=== PATIENT | female | born 2000 | race Caucasian/White ===

== ENCOUNTER 2019-03-10 20:17 | Emergency (ER) | payer OTHER ==
[~2019-03-10] VITALS: Ht 160 cm; Wt 72.7 kg
[2019-03-10 21:08] LABS: BASO # 0.1 10^3/uL (0.0-0.2); BASO % 0.5 % (0.0-1.0); EOS # 0.2 10^3/uL (0.0-0.5); EOS % 2.2 % (0.0-3.0); HEMATOCRIT 41.4 % (36.0-47.0); HEMOGLOBIN 13.6 g/dl (12.0-15.5); LYMPH # 2.7 10^3/uL (1.5-5.0); LYMPH % 27.4 % (24.0-44.0); MEAN CORPUSCULAR HEMOGLOBIN 30.3 pg (27.0-33.0); MEAN CORPUSCULAR HGB CONC 32.9 g/dl (32.0-36.5); MEAN CORPUSCULAR VOLUME 92.2 fl (80.0-96.0); MONO # 0.9 10^3/uL (0.0-0.8); MONO % 8.7 % (0.0-5.0); NEUTROPHILS # 6.1 10^3/uL (1.5-8.5); NEUTROPHILS % 60.6 % (36.0-66.0); PLATELET COUNT, AUTOMATED 249 10^3/uL (150-450); RED BLOOD COUNT 4.49 10^6/uL (4.00-5.40)
[2019-03-10 21:21] LABS: HCG, SERUM QUALITATIVE NEGATIVE (NEGATIVE)
[2019-03-10 21:26] LABS: ALBUMIN 3.6 GM/DL (3.2-5.2); ALT/SGPT 36 U/L (12-78); BILIRUBIN,DIRECT 0.1 MG/DL (0.0-0.2); BILIRUBIN,TOTAL 0.4 MG/DL (0.2-1.0); BLOOD UREA NITROGEN 12 MG/DL (7-18); CALCIUM LEVEL 9.3 MG/DL (8.5-10.1); CARBON DIOXIDE LEVEL 29 MEQ/L (21-32); CHLORIDE LEVEL 110 MEQ/L (98-107); CREATININE FOR GFR 0.92 MG/DL (0.55-1.30); GLOMERULAR FILTRATION RATE > 60.0 (>60); GLUCOSE, FASTING 81 MG/DL (70-100); LIPASE 265 U/L (73-393); POTASSIUM SERUM 4.8 MEQ/L (3.5-5.1); SODIUM LEVEL 142 MEQ/L (136-145); TOTAL PROTEIN 6.9 GM/DL (6.4-8.2)
[2019-03-11 01:03] LABS: CHLAMYDIA DNA AMPLIFICATION NEGATIVE (NEGATIVE); GC DNA AMPLIFICATION NEGATIVE (NEGATIVE)
--- NOTE | 2019-03-11 01:13 | REPVR ---
EXAM: US Pelvis Complete, Transabdominal and US Pelvis, Transvaginal EXAM DATE/TIME: 03/10/2019 12:30 AM CLINICAL HISTORY: 19 years old, female; Pelvic pain; Additional info: Ovarian pain, uterine pain TECHNIQUE: Imaging protocol: Real-time transabdominal and transvaginal pelvic ultrasound (complete) with image documentation. Transvaginal imaging was used for better evaluation of the endometrium and adnexa. COMPARISON: No relevant prior studies available. FINDINGS: Uterus/cervix: 8.5 x 5.5 x 4.4 cm. Normal endometrial thickness, measuring approximately 12 mm. Right ovary: 3.4 x 2.7 x 2.8 cm. No mass. Normal ovarian blood flow. Left ovary: 4.8 x 4 x 4.4 cm. 3.6 x 3.4 x 3.8 cm mildly complex cystic lesion, likely a hemorrhagic cyst or endometrioma. No mass. Normal ovarian blood flow. Free fluid: Trace nonspecific free pelvic fluid, likely physiologic. Bladder: Normal. IMPRESSION: 3.6 x 3.4 x 3.8 cm mildly complex left ovarian cystic lesion, likely a hemorrhagic cyst or endometrioma. If clinically indicated, followup pelvic ultrasound may be obtained in 6-8 weeks to ensure resolution. Electronically signed by: Woodrow Long On 03/11/2019 01:13:18 AM
[2019-03-11] MEDS ORDERED: DOXYCYCLINE HYCLATE 100 MG TAB PO ONE (01:45)
[2019-03-11] MEDS ORDERED: DOXY100C37 PO (01:57)
[2019-03-11 02:12] VITALS: BP 109/69
--- NOTE | 2019-03-11 15:05 | ED PDOC ---
Post-Departure Follow-Up ft olamide smiley faxed formal report of pelvic us for fu Cristi Tavarez MD Mar 11, 2019 15:05
== END 2019-03-11 02:14 | disposition home or self-care (01) ==
LOC: M ED 20:17
DX: N83.202 Unspecified ovarian cyst, left side (principal); N72 Inflammatory disease of cervix uteri; N39.0 Urinary tract infection, site not specified

== ENCOUNTER 2019-03-13 23:49 | Emergency (ER) | payer OTHER ==
[~2019-03-13] VITALS: Ht 160 cm; Wt 75.0 kg
[~2019-03-13 23:49] MED LIST: DOXY100C37 PO
[2019-03-14] MEDS ORDERED: KETOROLAC 30 MG/ML VIAL (J1885) IV ONE (01:15)
[2019-03-14 01:24] LABS: BASO % 0.4 % (0.0-1.0); EOS # 0.1 10^3/uL (0.0-0.5); HEMATOCRIT 36.9 % (36.0-47.0); HEMOGLOBIN 12.5 g/dl (12.0-15.5); LYMPH # 2.2 10^3/uL (1.5-5.0); LYMPH % 20.6 % (24.0-44.0); MEAN CORPUSCULAR HEMOGLOBIN 31.6 pg (27.0-33.0); MEAN CORPUSCULAR HGB CONC 33.9 g/dl (32.0-36.5); MEAN CORPUSCULAR VOLUME 93.2 fl (80.0-96.0); MONO # 0.9 10^3/uL (0.0-0.8); MONO % 8.4 % (0.0-5.0); NEUTROPHILS # 7.4 10^3/uL (1.5-8.5); PLATELET COUNT, AUTOMATED 229 10^3/uL (150-450); RED BLOOD COUNT 3.96 10^6/uL (4.00-5.40); WHITE BLOOD COUNT 10.8 10^3/uL (4.0-10.0)
[2019-03-14] MEDS ORDERED: KETOROLAC 60 MG/2 ML VIAL (J1885) IM ONE (01:45)
[2019-03-14 01:46] LABS: BLOOD UREA NITROGEN 19 MG/DL (7-18); CALCIUM LEVEL 8.6 MG/DL (8.5-10.1); CARBON DIOXIDE LEVEL 26 MEQ/L (21-32); CHLORIDE LEVEL 111 MEQ/L (98-107); CREATININE FOR GFR 0.78 MG/DL (0.55-1.30); GLOMERULAR FILTRATION RATE > 60.0 (>60); GLUCOSE, FASTING 105 MG/DL (70-100); POTASSIUM SERUM 4.1 MEQ/L (3.5-5.1); SODIUM LEVEL 143 MEQ/L (136-145)
[2019-03-14] MEDS ORDERED: LACT10SO29 PO (02:47)
[2019-03-14] MEDS ORDERED: IBUP-1022 PO (02:47)
[2019-03-14 03:08] VITALS: BP 100/54
--- NOTE | 2019-03-14 07:55 | REP ---
Clinical: Lower abdominal pain. Technique: Two supine views of the abdomen and pelvis. Findings: Moderate fecal stasis. No bowel obstruction or perforation. No organomegaly. No abnormal calcifications. Skeletal structures are intact. Impression: Moderate fecal stasis. Electronically Signed by Jayy Guevara MD 03/14/2019 07:46 A
== END 2019-03-14 03:10 | disposition home or self-care (01) ==
LOC: M ED 23:49
DX: K59.00 Constipation, unspecified (principal); N39.0 Urinary tract infection, site not specified; E28.2 Polycystic ovarian syndrome
CPT/HCPCS: 74018; 80048; 81001; 84702; 85025; 96372; 99283; J1885

== ENCOUNTER 2019-04-27 20:31 | Emergency (ER) | payer OTHER ==
[~2019-04-27] VITALS: Ht 160 cm; Wt 76.8 kg
[~2019-04-27 20:31] MED LIST changes: +IBUP-1022 PO; +LACT10SO29 PO
[2019-04-27 20:32] VITALS: BP 129/61
[2019-04-27 22:26] LABS: BASO # 0.1 10^3/uL (0.0-0.2); BASO % 0.5 % (0.0-1.0); EOS # 0.2 10^3/uL (0.0-0.5); EOS % 1.6 % (0.0-3.0); HEMOGLOBIN 13.1 g/dl (12.0-15.5); LYMPH # 2.5 10^3/uL (1.5-5.0); LYMPH % 23.2 % (24.0-44.0); MEAN CORPUSCULAR HEMOGLOBIN 31.5 pg (27.0-33.0); MEAN CORPUSCULAR HGB CONC 33.6 g/dl (32.0-36.5); MEAN CORPUSCULAR VOLUME 93.8 fl (80.0-96.0); MONO # 1.1 10^3/uL (0.0-0.8); NEUTROPHILS # 6.9 10^3/uL (1.5-8.5); NEUTROPHILS % 63.7 % (36.0-66.0); PLATELET COUNT, AUTOMATED 252 10^3/uL (150-450); RED BLOOD COUNT 4.16 10^6/uL (4.00-5.40); WHITE BLOOD COUNT 10.8 10^3/uL (4.0-10.0)
--- NOTE | 2019-04-27 23:04 | REPVR ---
PROCEDURE INFORMATION: Exam: US First Trimester, Transabdominal Exam date and time: 04/27/2019 9:48 PM Clinical history: 19 years old, female; complicated by abdominal or pelvic pain; Lower; First trimester; Gestational age or lmp: Lmp8//19; ; Additional info: Vaginal bleeding TECHNIQUE: Imaging protocol: Real-time transabdominal obstetrical ultrasound of the maternal pelvis and a first trimester , less than 14 weeks 0 days, with image documentation. COMPARISON: No relevant prior studies available. FINDINGS: GESTATION: Gestation: No pole is seen. Yolk sac measures 3 mm. Heart rate: Not applicable. Placenta: Unremarkable. No subchorionic bleed. Amniotic fluid: Amniotic and chorionic fluid are normal for gestational age. BIOMETRY: Estimated gestational age: Estimated gestational age is 6 weeks 1 day. Mean sac diameter: Small intrauterine gestational sac with mean sac diameter of 13.3 mm. MATERNAL: Uterus: Unremarkable. Cervix: Unremarkable. Right adnexa: Possible corpus luteum cyst in the right ovary measuring 1.9 cm. Left adnexa: Unremarkable. Intraperitoneal: No intraperitoneal free fluid. IMPRESSION: Small gestational sac with estimated gestational age of 6 weeks 1 day. No pole is seen at this time. Electronically signed by: Graham Nails On 04/27/2019 23:03:48 PM
== END 2019-04-27 23:46 | disposition home or self-care (01) ==
LOC: M ED 20:31
DX: O26.891 Other specified pregnancy related conditions, first trimester (principal); R10.2 Pelvic and perineal pain; O99.511 Diseases of the respiratory system complicating pregnancy, first trimester; J45.909 Unspecified asthma, uncomplicated; O99.341 Other mental disorders complicating pregnancy, first trimester; F31.9 Bipolar disorder, unspecified; E28.2 Polycystic ovarian syndrome; Z3A.01 Less than 8 weeks gestation of pregnancy; O99.331 Smoking (tobacco) complicating pregnancy, first trimester; F17.200 Nicotine dependence, unspecified, uncomplicated; O99.281 Endocrine, nutritional and metabolic diseases complicating pregnancy, first trimester

== ENCOUNTER 2019-05-10 18:23 | Emergency (ER) | payer OTHER ==
[~2019-05-10] VITALS: Ht 160 cm; Wt 76.7 kg
[2019-05-10] MEDS ORDERED: PREN29TA4 PO (18:30)
[2019-05-10 19:04] LABS: BASO # 0.1 10^3/uL (0.0-0.2); BASO % 0.5 % (0.0-1.0); EOS # 0.2 10^3/uL (0.0-0.5); EOS % 1.5 % (0.0-3.0); HEMATOCRIT 39.9 % (36.0-47.0); HEMOGLOBIN 13.2 g/dl (12.0-15.5); LYMPH # 2.3 10^3/uL (1.5-5.0); LYMPH % 18.5 % (24.0-44.0); MEAN CORPUSCULAR HEMOGLOBIN 31.2 pg (27.0-33.0); MEAN CORPUSCULAR HGB CONC 33.1 g/dl (32.0-36.5); MEAN CORPUSCULAR VOLUME 94.3 fl (80.0-96.0); MONO # 0.9 10^3/uL (0.0-0.8); MONO % 7.4 % (0.0-5.0); NEUTROPHILS % 70.8 % (36.0-66.0); PLATELET COUNT, AUTOMATED 235 10^3/uL (150-450); RED BLOOD COUNT 4.23 10^6/uL (4.00-5.40); WHITE BLOOD COUNT 12.7 10^3/uL (4.0-10.0)
--- NOTE | 2019-05-10 20:17 | REPVR ---
PROCEDURE INFORMATION: Exam: US First Trimester, Transabdominal Exam date and time: 05/10/2019 7:33 PM Clinical history: 19 years old, female; complicated by abdominal or pelvic pain; Lower; First trimester; Gestational age or lmp: 02/11/19; ; Additional info: Pelvic pain/cramping; ? 7-8 weeks TECHNIQUE: Imaging protocol: Real-time transabdominal obstetrical ultrasound of the maternal pelvis and a first trimester , less than 14 weeks 0 days, with image documentation. COMPARISON: 1ST TRIMESTER US 04/27/2019 9:32 PM FINDINGS: GESTATION: Gestation: Single gestational sac in the uterus. Single fetus demonstrated in the gestational sac with a crown-rump length of 1.7 cm. Heart rate: heart rate is 149 beats per minute. Placenta: Unremarkable. No subchorionic bleed. Amniotic fluid: Amniotic and chorionic fluid are normal for gestational age. BIOMETRY: Estimated gestational age: Gestational age based on crown-rump length is 8 weeks 1 day versus 12 weeks 4 days based on LMP of 02/11/2019. Estimated due date: ANTONELLA is 12/21/19 MATERNAL: Uterus: Unremarkable. Cervix: Unremarkable. Right adnexa: Unremarkable. Left adnexa: Unremarkable. Intraperitoneal: No intraperitoneal free fluid. IMPRESSION: Unremarkable for trimester gestation at 8 weeks 1 day using ultrasound measurements and assuming LMP is inaccurate. Detailed structural survey can be performed between 19-20 weeks if clinically desired. Electronically signed by: Naga Ghotra On 05/10/2019 20:16:47 PM
[2019-05-10] MEDS ORDERED: KEFL500C17 PO (20:27)
[2019-05-10 20:54] VITALS: BP 139/86
== END 2019-05-10 21:21 | disposition home or self-care (01) ==
LOC: M ED 18:59
DX: O23.41 Unspecified infection of urinary tract in pregnancy, first trimester (principal); O26.851 Spotting complicating pregnancy, first trimester; O99.331 Smoking (tobacco) complicating pregnancy, first trimester; F17.290 Nicotine dependence, other tobacco product, uncomplicated; Z3A.08 8 weeks gestation of pregnancy

== ENCOUNTER 2019-06-14 16:18 | Emergency (ER) | payer OTHER ==
[~2019-06-14] VITALS: Ht 160 cm; Wt 72.7 kg
[~2019-06-14 16:18] MED LIST changes: +KEFL500C17 PO; +PREN29TA4 PO
[2019-06-14] MEDS ORDERED: QUET1TAB7 PO (16:53)
[2019-06-14 17:18] LABS: BASO # 0.1 10^3/uL (0.0-0.2); BASO % 0.5 % (0.0-1.0); EOS # 0.2 10^3/uL (0.0-0.5); EOS % 1.7 % (0.0-3.0); HEMATOCRIT 38.3 % (36.0-47.0); HEMOGLOBIN 12.6 g/dl (12.0-15.5); LYMPH # 2.4 10^3/uL (1.5-5.0); LYMPH % 20.7 % (24.0-44.0); MEAN CORPUSCULAR HEMOGLOBIN 31.1 pg (27.0-33.0); MEAN CORPUSCULAR HGB CONC 32.9 g/dl (32.0-36.5); MEAN CORPUSCULAR VOLUME 94.6 fl (80.0-96.0); MONO % 8.5 % (0.0-5.0); NEUTROPHILS # 7.7 10^3/uL (1.5-8.5); NEUTROPHILS % 67.5 % (36.0-66.0); PLATELET COUNT, AUTOMATED 241 10^3/uL (150-450); RED BLOOD COUNT 4.05 10^6/uL (4.00-5.40); WHITE BLOOD COUNT 11.4 10^3/uL (4.0-10.0)
[2019-06-14 17:32] LABS: BLOOD UREA NITROGEN 9 MG/DL (7-18); CALCIUM LEVEL 9.3 MG/DL (8.5-10.1); CARBON DIOXIDE LEVEL 26 MEQ/L (21-32); CHLORIDE LEVEL 107 MEQ/L (98-107); CREATININE FOR GFR 0.68 MG/DL (0.55-1.30); GLOMERULAR FILTRATION RATE > 60.0 (>60); GLUCOSE, FASTING 80 MG/DL (70-100); HCG, SERUM QUANTITATIVE 58939 MIU/ML; POTASSIUM SERUM 4.8 MEQ/L (3.5-5.1); SODIUM LEVEL 139 MEQ/L (136-145)
--- NOTE | 2019-06-14 18:37 | REPVR ---
PROCEDURE INFORMATION: Exam: US First Trimester, Transabdominal Exam date and time: 06/14/2019 5:36 PM Age: 19 years old Clinical history: complicated by abdominal or pelvic pain; Lower; First trimester; Gestational age or lmp: 12w5; ; Additional info: Vaginal bleeding with cramping, 12 wks per prior US TECHNIQUE: Imaging protocol: Real-time transabdominal obstetrical ultrasound of the maternal pelvis and a first trimester , less than 14 weeks 0 days, with image documentation. COMPARISON: 1ST TRIMESTER US 05/10/2019 7:28 PM FINDINGS: GESTATION: Gestation: There is a fetus with a crown-rump length measurement of 6.4 cm her menstrual age of 12 weeks and 5 days. Heart rate: Cardiac activity at rate of 158 beats per minute. Placenta: Unremarkable. No subchorionic bleed. Amniotic fluid: Amniotic and chorionic fluid are normal for gestational age. MATERNAL: Uterus: Unremarkable. Cervix: Not optimally imaged. Appears closed on images submitted. Right adnexa: 1.8 cm follicle the right ovary with a few internal echoes. Left adnexa: Unremarkable. Ovary is not seen as a separate structure. Intraperitoneal: No intraperitoneal free fluid. IMPRESSION: Single live intrauterine with an estimated menstrual age of 12 weeks and 5 days. This compares to an expected gestational age of 12 weeks and 6 days based on previous ultrasound dated 04/27/2019. Electronically signed by: Corrina Collado On 06/14/2019 18:37:18 PM
[2019-06-14] MEDS ORDERED: FLAG500T PO (19:36)
[2019-06-14 19:43] VITALS: BP 113/60
[2019-06-14 21:19] LABS: CHLAMYDIA DNA AMPLIFICATION NEGATIVE (NEGATIVE); GC DNA AMPLIFICATION NEGATIVE (NEGATIVE)
== END 2019-06-14 19:50 | disposition home or self-care (01) ==
LOC: M ED 16:18
DX: O23.591 Infection of other part of genital tract in pregnancy, first trimester (principal); O99.281 Endocrine, nutritional and metabolic diseases complicating pregnancy, first trimester; E28.2 Polycystic ovarian syndrome; Z3A.12 12 weeks gestation of pregnancy; Z87.42 Personal history of other diseases of the female genital tract; O99.331 Smoking (tobacco) complicating pregnancy, first trimester; F17.290 Nicotine dependence, other tobacco product, uncomplicated; Z79.899 Other long term (current) drug therapy

== ENCOUNTER 2019-11-05 15:50 | Outpatient (CLI) | payer OTHER ==
[~2019-11-05] VITALS: Ht 160 cm; Wt 83.2 kg
[~2019-11-05 15:50] MED LIST changes: +FLAG500T PO; +QUET1TAB7 PO
[2019-11-05 16:04] VITALS: BP 123/64
[2019-11-05] MEDS ORDERED: MORPHINE 4 MG/ML 1ML VIAL/SYRINGE (J2270) IV ONE (17:00)
[2019-11-05 17:21] LABS: HEMATOCRIT 33.6 % (36.0-47.0); MEAN CORPUSCULAR HEMOGLOBIN 28.9 pg (27.0-33.0); MEAN CORPUSCULAR HGB CONC 32.7 g/dl (32.0-36.5); MEAN CORPUSCULAR VOLUME 88.2 fl (80.0-96.0); PLATELET COUNT, AUTOMATED 245 10^3/uL (150-450); RED BLOOD COUNT 3.81 10^6/uL (4.00-5.40)
[2019-11-05 17:35] LABS: AMORPHOUS SEDIMENT SMALL (NEGATIVE); APPEARANCE, URINE TURBID (CLEAR); BACTERIA, URINE AUTO NEGATIVE (NEGATIVE); BILIRUBIN, URINE AUTO NEGATIVE (NEGATIVE); BLOOD, URINE BLOOD NEGATIVE (NEGATIVE); COLOR, URINE YELLOW (YELLOW); GLUCOSE, URINE (UA) AUTO NEGATIVE (NEGATIVE); KETONE, URINE AUTO NEGATIVE (NEGATIVE); LEUKOCYTE ESTERASE, URINE AUTO NEGATIVE (NEGATIVE); NITRITE, URINE AUTO NEGATIVE (NEGATIVE); PROTEIN, URINE AUTO NEGATIVE (NEGATIVE); RBC, URINE AUTO 1 /HPF (0-3); SPECIFIC GRAVITY URINE AUTO 1.014 (1.002-1.035); SQUAMOUS EPITHELIAL CELL UR AU 1 /HPF (0-6); UROBILINOGEN, URINE AUTO 0.2 mg/dL (0.0-2.0); WBC, URINE AUTO 0 /HPF (0-3)
[2019-11-05 17:35] LABS: ALBUMIN 2.5 GM/DL (3.2-5.2); ALT/SGPT 13 U/L (12-78); BILIRUBIN,TOTAL 0.3 MG/DL (0.2-1.0); BLOOD UREA NITROGEN 7 MG/DL (7-18); CARBON DIOXIDE LEVEL 22 MEQ/L (21-32); CHLORIDE LEVEL 107 MEQ/L (98-107); CREATININE FOR GFR 0.71 MG/DL (0.55-1.30); GLOMERULAR FILTRATION RATE > 60.0 (>60); GLUCOSE, FASTING 89 MG/DL (70-100); POTASSIUM SERUM 3.8 MEQ/L (3.5-5.1); SODIUM LEVEL 140 MEQ/L (136-145); TOTAL PROTEIN 6.2 GM/DL (6.4-8.2)
--- NOTE | 2019-11-05 18:10 | REPVR ---
PROCEDURE INFORMATION: Exam: US Biophysical Profile Without Non-Stress Test Exam date and time: 11/05/2019 5:54 PM Age: 19 years old Clinical indication: Pain indication: 32 weeks uncontrolled pain right abdomen; ; Additional info: 32 weeks uncontrolled pain RT abdominal edc 0620,20 TECHNIQUE: Imaging protocol: US biophysical profile without non-stress testing. COMPARISON: US PELVIC NON-OB COMPLETE 03/11/2019 12:08 AM FINDINGS: Breathin/2 Gross body movements: 2/2 tone: 2/2 Qualitative amniotic fluid: 2/2 (DON 14.5 cm slightly lower than the 50 percentile). Biophysical Profile Score: 8/8 Heart rate: heart rate 133 bpm. Cervix: Cervix measures 2.8 cm. IMPRESSION: Normal biophysical profile. Electronically signed by: Naga Ghotra On 11/05/2019 18:10:24 PM
--- NOTE | 2019-11-05 18:12 | REPVR ---
PROCEDURE INFORMATION: Exam: US Abdomen Complete Exam date and time: 11/05/2019 5:54 PM Age: 19 years old Clinical indication: Abdominal pain; Acute; ; Additional info: 32 weeks uncontrolled pain RT abdominal R/O k stone , gb TECHNIQUE: Imaging protocol: Real-time ultrasound of the abdomen with image documentation. COMPARISON: No relevant prior studies available. FINDINGS: Liver: Normal. No mass. Gallbladder: Normal. No gallstones. There is no gallbladder wall thickening. Common bile duct: The common bile duct measures 3.6 mm. No mass or choledocholithiasis. Pancreas: Visualized pancreas is unremarkable. Right kidney: Right kidney measures 10.8 x 4.7 x 5.5 cm. Left kidney: Left kidney measures 10.4 x 5.1 x 5 cm. Spleen: Spleen measures 11.5 x 11.8 x 4.1 cm, mildly enlarged. Aorta: Proximal aorta measures 1.5 cm and mid aorta 1.7 cm. Distal aorta not visualized. Inferior vena cava: Normal. IMPRESSION: 1. Mild splenomegaly. 2. Otherwise unremarkable examination. Electronically signed by: Naga Ghotra On 11/05/2019 18:12:31 PM
[2019-11-05 19:16] VITALS: BP 110/51
[2019-11-06] MEDS ORDERED: PRENTAB9 PO (12:37)
--- NOTE | 2019-11-06 12:56 | IPN ---
DATE: 11/05/2019 This lady is a 19-year-old, 4, para 2, who was admitted with severe right flank pain and severe right upper quadrant pain radiating down into the groin. She had 4 mg of morphine, which helped settle down the pain. She had a biophysical profile, which showed a biophysical profile of 8/8 with an amniotic fluid index (DON) of 14.5. heart rate 133 beats per minute. Cervical length was 2.8 cm. Good motion was noted. She also had a complete abdominal ultrasound to rule out kidney stone cholelithiasis and it showed a normal liver. Gallbladder was normal. No stones or wall thickening. Common bile duct was normal. Right and left kidneys were normal but the ureteral jets were not visualized. Aorta was normal. Slight splenomegaly was noted, otherwise within normal limits. Her hemoglobin was 11.0, hematocrit 33.6, and platelets were 245. White count was 15.0. Urine was turbid yellow, 1.014, pH of 8, and had a small amount of amorphous sediment in it. Her glucose was 89, BUN 7, and GFR was greater than 60. Her electrolytes were normal. Her alkaline phosphatase was 145. Her total protein 6.2, albumin 2.5. After an hour so she seemed to feel much better, had just a dull ache on her right side. Again, percussion of the right upper area was much better and improved since the initial examination. Our process was thinking that she probably passed a kidney stone, although we could not visualize one on ultrasound and a lot of stones are not visualized on ultrasound. The patient was given instructions regarding maintaining her appointment with [facility] in November, increasing fluids, Tylenol for pain. 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 We reminded her about contractions, kick chart, premature rupture of membranes and bleeding, and if need be to return if the pain becomes worse or comes back again. Otherwise, the patient was discharged undelivered. Expressed understanding of the issues. A 40 minute discussion for plans of discharge and followup.
== END 2019-11-05 19:45 | disposition home or self-care (01) ==
LOC: M LDO 15:50
PROVIDERS: ATTEND Obstetrics & Gynecology
DX: O26.893 Other specified pregnancy related conditions, third trimester (principal); R10.9 Unspecified abdominal pain; Z3A.32 32 weeks gestation of pregnancy
CPT/HCPCS: 59025; 76700; 76815; 76819; 76820; 80053; 81001; 85027; 96374; G0378; G0463; J2270

== ENCOUNTER 2019-11-06 03:56 | Outpatient (CLI) | payer OTHER ==
[~2019-11-06] VITALS: Ht 160 cm; Wt 83.2 kg
[2019-11-06 04:14] VITALS: BP 123/68
[2019-11-06] MEDS ORDERED: LR 1,000 ML IV ONE (04:45)
[2019-11-06] MEDS ORDERED: LACTATED RINGER'S 1000 ML IV SCH (04:45)
[2019-11-06] MEDS ORDERED: MORPHINE 4 MG/ML 1ML VIAL/SYRINGE (J2270) IV ONE (04:45)
[2019-11-06] MEDS ORDERED: MORPHINE 4 MG/ML 1ML VIAL/SYRINGE (J2270) As Ordered ONE (04:49)
[2019-11-06 05:12] LABS: APPEARANCE, URINE HAZY (CLEAR); BACTERIA, URINE AUTO 1+ (NEGATIVE); BILIRUBIN, URINE AUTO NEGATIVE (NEGATIVE); BLOOD, URINE BLOOD NEGATIVE (NEGATIVE); COLOR, URINE YELLOW (YELLOW); GLUCOSE, URINE (UA) AUTO NEGATIVE (NEGATIVE); KETONE, URINE AUTO 2+ mg/dL (NEGATIVE); LEUKOCYTE ESTERASE, URINE AUTO 2+ (NEGATIVE); MUCUS, URINE SMALL (NEGATIVE); NITRITE, URINE AUTO NEGATIVE (NEGATIVE); PROTEIN, URINE AUTO NEGATIVE (NEGATIVE); RBC, URINE AUTO 1 /HPF (0-3); SPECIFIC GRAVITY URINE AUTO 1.023 (1.002-1.035); SQUAMOUS EPITHELIAL CELL UR AU 10 /HPF (0-6); WBC, URINE AUTO 31 /HPF (0-3)
[2019-11-06] MEDS ORDERED: LR 1,000 ML IV SCH (05:45)
[2019-11-06 07:17] VITALS: BP 100/54
[2019-11-06] MEDS ORDERED: cefTRIAXone SOD 1 GM in D5W MINI-BAG PLUS 50 ML IV SCH (08:00)
--- NOTE | 2019-11-06 08:46 | HPE ---
DATE OF ADMISSION: 11/06/2019 19-year-old 4, para 2, abortio 1 ectopic, last menstrual period (LMP) 02/11/2019, estimated date of confinement (EDC) 12/26/2019 at 32 weeks and 5 days with acute onset of right flank pain, right axillary pain radiating down her right side into her groin. It was acute and is spasmodic and she is writhing around the bed with acute pain 10/10. She denies any history of vaginal bleeding or loss. No history of kidney stones or urinary tract infection or cholestasis. Risk factors is she sees [facility] for [place] depression scale (EPDS) she vapes. She has short interval and her BMI is 29.51 and she has an elevated inner 3-hour GTT at 1 hour of 182. PAST HISTORY: November 2014 at 40 weeks spontaneous delivery female 6 pounds 12 ounces. The patient was 14 years of age. August 2018 at 40 weeks spontaneous vaginal delivery male 8 pounds. 2018 and an ectopic undisclosed side and was treated with methotrexate. LABS: B positive, HIV negative, hep negative, RPR negative, rubella immune. Varicella immune. Pap showed ascus HPV positive. Gonorrhea and chlamydia negative. Urine was not available. 1-hour glucose initially early was 114. At that 28 week the GTT showed it was 182. She had a 3-hour GTT and her fasting was 91, hours 182, her 2 hours 133 and at 3 hours 116. PHYSICAL EXAMINATION: On examination today she is in significant distress, especially on the right side in her flank and she is writhing around in bed with a 10/10. She does have a category 1 strip with no contractions. The abdomen is soft. No evidence of abruption, vertex presenting. Cervix is closed, posterior, high and thick. No vaginal bleeding or loss. On examination of her right flank, percussion is positive right down the side into the groin area. Her right upper quadrant is negative for cholestasis or cholelithiasis and there is no significant uterine tenderness on the right side. PLAN: Our plan of management is to hydrate her with an IV. Get an ultrasound with biophysical profile, a kidney ultrasound, rule out stones, gallbladder evaluation, urine for [place] M, CMP and a CBC and give her pain meds in the form of morphine 4 mg IV times one dose. Blood pressures as mentioned of 113/60, respirations 18, pulse 70, temperature 98.5. Urine is not available. Our plan of management is to try and control her pain and evaluate etiology behind her pain.
[2019-11-06] MEDS ORDERED: CYCLOBENZAPRINE 10MG TABLET PO SCH (09:00)
[2019-11-06 09:33] VITALS: BP 107/57
[2019-11-06 10:02] LABS: APPEARANCE, URINE CLOUDY (CLEAR); BACTERIA, URINE AUTO NEGATIVE (NEGATIVE); BILIRUBIN, URINE AUTO NEGATIVE (NEGATIVE); BLOOD, URINE BLOOD NEGATIVE (NEGATIVE); COLOR, URINE YELLOW (YELLOW); GLUCOSE, URINE (UA) AUTO NEGATIVE (NEGATIVE); KETONE, URINE AUTO 1+ mg/dL (NEGATIVE); LEUKOCYTE ESTERASE, URINE AUTO NEGATIVE (NEGATIVE); MUCUS, URINE SMALL (NEGATIVE); NITRITE, URINE AUTO NEGATIVE (NEGATIVE); PROTEIN, URINE AUTO NEGATIVE (NEGATIVE); RBC, URINE AUTO 0 /HPF (0-3); SPECIFIC GRAVITY URINE AUTO 1.014 (1.002-1.035); SQUAMOUS EPITHELIAL CELL UR AU 0 /HPF (0-6); UROBILINOGEN, URINE AUTO 0.2 mg/dL (0.0-2.0); WBC, URINE AUTO 1 /HPF (0-3)
[2019-11-06] MEDS ORDERED: LIDOCAINE 5% (LIDODERM) PATCH TD ONE (11:00)
[2019-11-06 11:29] VITALS: BP 100/59
[2019-11-06 11:43] LABS: ALBUMIN 2.2 GM/DL (3.2-5.2); ALT/SGPT 14 U/L (12-78); BILIRUBIN,TOTAL 0.4 MG/DL (0.2-1.0); BLOOD UREA NITROGEN 5 MG/DL (7-18); CALCIUM LEVEL 8.5 MG/DL (8.5-10.1); CARBON DIOXIDE LEVEL 24 MEQ/L (21-32); CHLORIDE LEVEL 105 MEQ/L (98-107); CREATININE FOR GFR 0.58 MG/DL (0.55-1.30); GLOMERULAR FILTRATION RATE > 60.0 (>60); GLUCOSE, FASTING 98 MG/DL (70-100); SODIUM LEVEL 138 MEQ/L (136-145); TOTAL PROTEIN 5.7 GM/DL (6.4-8.2)
[2019-11-06] MEDS ORDERED: PRENTAB9 PO (12:37)
[2019-11-06 12:49] VITALS: BP 118/63
--- NOTE | 2019-11-06 14:55 | IPNPDOC ---
Text Note Date of Service The patient was seen on 11/06/19. NOTE Received report and assumed care from Dr. Aguilar during board sign out at 0730 this morning. S: Myla is a 19yo at 32+6wks who was admitted overnight for observation d/t continued flank pain. She is now s/p morphine and flexeril administered for pain. 20 minutes after flexeril was administered, she rated her pain at as a 7/10, but shortly after she was able to relax and sleep. She reports excellent movement, denies LOF/VB/CTX. She denies pain with urination, denies CORDOVA/visual disturbances/RUQ pain, denies CVA tenderness. She does express pain with palpation of area immediately below right axilla and below right breast. She feels pain more with movement and palpation. She denies being hit, pushed, kicked; denies lifting excessively or sleeping in uncomfortable positions. She has also received IV hydration (2+ ketones noted on UA) and flomax (d/t po ssible stone). She received 1x dose of rocephin d/t possible pyelonephritis, but this was ruled out and no further antibiotics were received. O: VSS, afebrile, HR WNL, BP normotensive EKG: normal sinus rhythm, nonspecifice t-wave abnormality (per Dr. Brown with cardiology, no recommendation for further testing without other cardiac comorbidities) UA: initial clean catch with 2+ ketones, 2+ leukocytes, WBCs, 1+ bacteria, 10 squams; -Cath UA with 1+ ketones, no leukocytes, squams, or bacteria, 1 WBC CMP WNL Abdominal (Complete) US: unremarkable, mild splenomegaly US: Normal BPP (8/8), cervix 2.8cm, FHR 133, DON 14.5) UC: pending *All results and plan of care were reviewed and discussed with Dr. Gomez A: Anastacia is a 19yo at 32+6 weeks with what appears to most likely be musculoskeletal pain/costochondritis. She responded well to flexeril for pain control. status is reassuring and had a reactive tracing. P: Discharge home with strict return precautions Comfort measures (rice sock/warm pack, tylenol, warm shower, rest, massage) Rx for flexeril for PRN severe pain f/u at scheduled DELICIA in clinic in 4 weeks or sooner PRN VS,Fishbone, I+O VS, Fishbone, I+O Laboratory Tests 11/06/19 10:48 Vital Signs Date Time Temp Pulse Resp B/P (MAP) Pulse Ox O2 Delivery O2 Flow Rate FiO2 11/06/19 12:49 98.6 69 20 118/63 (81) 99 Room Air MADDI ESPINOZA CNM November 06, 2019 14:55
--- NOTE | 2019-11-06 14:56 | ECGEPIP ---
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 Electronically Signed on 11-06-2019 14:55:56 EDT by Osmin Lopez
--- NOTE | 2019-11-06 15:19 | HPE ---
DATE OF ADMISSION: 11/06/2019 19-year-old, 4, para 2, abort (A) 1 ectopic, last menstrual period (LMP) 02/11/2019, estimated date of confinement (EDC) 12/26/2019, at 32 weeks 6 days is re-seen less than 6 hours after being discharged with a questionable diagnosis of kidney stone after having acute onset of right flank pain radiating down the side into the groin. She has been given morphine 4 mg. It resolved. She was given some Tylenol to go home with, and she took a warm shower and the pain recurred. She denies any history again of stone or gallbladder disease or respiratory issues. She has no vaginal discharge, bleeding, or cramps. She has no shortness of breath. Her risk factors are that she sees [facility] for EPDS. She has short interval . Her body mass index (BMI) is 29.51. PAST HISTORY: November 2014, at age 14, delivered an infant 6 pound 12 ounce female. 2019 in August delivered male 8 pound zero. Had an ectopic in 2017, treated with methotrexate. Labs are B positive, HIV negative, hep negative, RPR negative, rubella immune. Varicella immune. Pap showed ASCUS, HPV positive. Gonorrhea and chlamydia are negative. Early 1-hour glucose was 114. Her 28-week glucose 182. She then had a 3-hour GTT. Fasting was 91, 1-hour 182, 2-hour 133, 3-hour 116. When she was here we did ultrasound abdominopelvic and biophysical profile. The abdominopelvic ultrasound indicated a normal liver, normal gallbladder, no stones, normal common bile duct, normal pancreas. Right and left kidneys were normal. Mild splenomegaly. She had a BPP of 8/8 with an DON of 14.5. Cervix was 2.8 cm. No evidence of abruption or previa. She had a CMP, which was completely normal. Urine was 1.014, pH was 8, and she had a small sediment in the urine but no blood. Presently, her blood pressure is 123/68, respirations 18, pulse 76, temperature 98.4. She describes her pain about 8/10 and it is not as spasmodic as it was before, although it is still present. Our plan of care is to restart the IV. She is presently having category 1 strip with no contractions. Will give her some IV pain meds and reassessment with urine for routine micro. The option of having a stone is still present, however it may be small enough that it is not visualized on ultrasound and will not be seen if it is small enough and the ureteral jets are normal. She denies any constipation, any diarrhea, any trauma to the right side, any shortness of breath or dyspnea. Our plan is to observe her over the next 24 hours, and we are awaiting the urine to return with results. In summary we have a 32-week 6-day with right flank pain undiagnosed at the present time still primary diagnosis of being kidney stone.
--- NOTE | 2019-11-06 15:30 | IPN ---
DATE: 11/06/2019 This lady has returned as mentioned because of severe right flank pain, right groin pain and right back pain. Still positive to percussion. The working diagnosis originally was and is stone or acute pyelo or musculoskeletal. We repeated the patient's urine. Initial urine was negative for everything, however, presently she has 2+ ketones but she is leukocyte esterase 2+ and bacteria 2+. Despite the use of morphine 4 grams times one dose reduced her pain from 10 to 5 however still persists and is spasmodic. Our plan of management is to cover her for possible pyelonephritis with Rocephin IV every 24 and some Flexeril in orders to see if this will resolve any of the issue, and monitor her on a every four basis to evaluate any change.
[2019-11-06] MEDS ORDERED: TAMSULOSIN 0.4 MG CAP PO SCH (21:00)
[2019-11-06] MEDS ORDERED: **NOTE PATIENT COMMENT** MISC XX SCH (21:00)
== END 2019-11-06 12:55 | disposition home or self-care (01) ==
LOC: M LDO 03:56
PROVIDERS: ATTEND Obstetrics & Gynecology
DX: O26.893 Other specified pregnancy related conditions, third trimester (principal); R10.9 Unspecified abdominal pain; Z3A.32 32 weeks gestation of pregnancy
CPT/HCPCS: 59025; 80053; 81001; 87086; 93005; 96374; 96375; G0378; G0463; J0696; J2270

== ENCOUNTER 2019-12-21 04:52 | Inpatient (IN) | payer OTHER ==
[2019-12-21] VITALS (9 sets, daily range): BP systolic 95–128; BP diastolic 56–71
[~2019-12-21] VITALS: Ht 160 cm; Wt 84.9 kg
[~2019-12-21 04:52] MED LIST changes: -LACT10SO29 PO; +LACT20EL PO; +PRENTAB9 PO
[2019-12-21] MEDS ORDERED: LR 1,000 ML IV SCH (05:48)
[2019-12-21] MEDS ORDERED: OXYTOCIN DRIP 30 UNITS in IV 1 EA IV SCH (06:00)
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
[2019-12-21 06:29] LABS: HEMATOCRIT 35.6 % (36.0-47.0); HEMOGLOBIN 11.3 g/dl (12.0-15.5); MEAN CORPUSCULAR HEMOGLOBIN 27.1 pg (27.0-33.0); MEAN CORPUSCULAR HGB CONC 31.7 g/dl (32.0-36.5); MEAN CORPUSCULAR VOLUME 85.4 fl (80.0-96.0); PLATELET COUNT, AUTOMATED 243 10^3/uL (150-450); RED BLOOD COUNT 4.17 10^6/uL (4.00-5.40); WHITE BLOOD COUNT 12.1 10^3/uL (4.0-10.0)
[2019-12-21] MEDS: PRENATAL VITAMINS CHEWABLE TABLET PO SCH (09:00)
[2019-12-21] MEDS ORDERED: OXYTOCIN 30 UNITS IN 0.9% NaCl 500ML IV BAG (J2590) As Ordered ONE (09:30)
[2019-12-21 09:55] LABS: CORD GAS ABE V 0.7; CORD GAS O2 SAT V 81.8 %; CORD GAS PCO2 V 34.7 mmHg; CORD GAS PH V 7.458 UNITS; CORD GAS PO2 V 33.1 mmHg; CORD GAS SBC V 24.7 MEQ/L; CORD GAS TCO2 V 25.1 MEQ/L
[2019-12-21 09:58] LABS: CORD GAS HCO3 A 26.9 MEQ/L; CORD GAS O2 SAT A 48.5 %; CORD GAS PCO2 A 52.5 mmHg; CORD GAS PH A 7.327 UNITS; CORD GAS PO2 A 21.9 mmHg; CORD GAS SBC A 23.3 MEQ/L; CORD GAS TCO2 A 28.5 MEQ/L
[2019-12-21] MEDS ORDERED: MEASLES,MUMPS,RUBELLA VACCINE INJ (MMR-II) (90707) SC SCH (10:00)
[2019-12-21] MEDS ORDERED: OXYTOCIN INJ 10 UNITS/ML VIAL (J2590) IV ONE (10:00)
[2019-12-21] MEDS ORDERED: IBUPROFEN 800 MG TAB PO PRN (10:00)
[2019-12-21] MEDS ORDERED: RHOGAM 300 MCG (1500 IU) INJ (J2790) IM SCH (10:00)
[2019-12-21] MEDS ORDERED: MOM 30ML SUSPENSION UDC PO PRN (10:00)
[2019-12-21] MEDS ORDERED: DIBUCAINE 1% OINTMENT 30GM TOP PRN (10:00)
[2019-12-21] MEDS ORDERED: IBUPROFEN 600MG TAB PO PRN (10:00)
[2019-12-21] MEDS ORDERED: OXYTOCIN DRIP 30 UNITS in IV 1 EA IV ONE (10:00)
[2019-12-21] MEDS ORDERED: ANUSOL HC CREAM 30GM TOP PRN (10:00)
[2019-12-21] MEDS ORDERED: ACETAMINOPHEN TAB 650MG DOSE (2X325MG) PO PRN (10:00)
[2019-12-21] MEDS ORDERED: ACETAMINOPHEN 500 MG TAB PO PRN (10:00)
[2019-12-21] MEDS ORDERED: METHYLERGONOVINE MALEATE 0.2 MG TAB PO PRN (10:00)
[2019-12-21] MEDS ORDERED: DOCUSATE SODIUM 100 MG CAP PO PRN (10:00)
[2019-12-21] MEDS ORDERED: OXYTOCIN INJ 10 UNITS/ML VIAL (J2590) As Ordered ONE (19:14)
[2019-12-22 05:19] VITALS: BP 112/64
[2019-12-22] MEDS ORDERED: IBUP80TA PO (06:58)
[2019-12-22] MEDS ORDERED: DOCU100C16 PO (06:58)
[2019-12-22] MEDS ORDERED: DIBU10OI TOP (06:58)
[2019-12-22 07:52] LABS: HEMATOCRIT 36.8 % (36.0-47.0); HEMOGLOBIN 11.6 g/dl (12.0-15.5); MEAN CORPUSCULAR HEMOGLOBIN 26.9 pg (27.0-33.0); MEAN CORPUSCULAR HGB CONC 31.5 g/dl (32.0-36.5); MEAN CORPUSCULAR VOLUME 85.2 fl (80.0-96.0); PLATELET COUNT, AUTOMATED 202 10^3/uL (150-450); RED BLOOD COUNT 4.32 10^6/uL (4.00-5.40); WHITE BLOOD COUNT 15.2 10^3/uL (4.0-10.0)
[2019-12-22] MEDS: PRENATAL VITAMINS CHEWABLE TABLET PO SCH (08:40)
--- NOTE | 2019-12-22 18:35 | DN ---
DATE: 12/21/2019 This a 19-year-old 4, para 3, who was admitted with spontaneous rupture of membranes. She came out of the bathroom expressing the wish to push. She was fully dilated. A precipitous delivery of a live- female 7 pounds 11 ounces, 3500 mg, scores of 9 ant 9 at one and five minutes, respectively. Baby had a bowel movement at delivery. Arterial pH 7.32, base excess 0.0, venous pH 7.45, base excess 0.7. Placenta delivered spontaneously thereafter. Three-vessel cord. Membranes and tissues intact. The uterus contracted well down under Pitocin. On examination, anterior, posterior, lateral foster and perineum were intact. Sphincter was tight. No evidence of any trauma. The patient and baby tolerating procedure well.
--- NOTE | 2019-12-23 13:38 | DSES ---
DATE OF ADMISSION: 12/21/2019 DATE OF DISCHARGE: 12/22/2019 This lady is a 19-year-old 4, now para 3, who came in with spontaneous rupture of membranes. Had a spontaneous vaginal delivery of a live- female , 7 pounds 11 ounces, 3500 grams, scores of 9 and 9 at one and five minutes, respectfully. Arterial pH 7.32, base excess 0.0, venous pH 7.45, base excess -0.7. She did not have any anesthesia. Had no vaginal issues or lacerations. She was GBS negative. Her blood pressure on discharge is 112/64, respirations are 20, pulse 83, and temperature is 98.4. Her hemoglobin was 11.3, hematocrit 35.6, and platelets were 243. We discussed phlebitis, cystitis, mastitis, metritis, cellulitis, diet, exercise pain management, and perineal, breast, and wound care. The patient is planning on breast-feeding. Seeing Rena Joseph for her at 6 weeks. Baby will be taken to [facility]. The rest examination unremarkable. Normocephalic, atraumatic. Neck: Full range of motion. Pupils equal and reactive to light. Distal pulses are symmetric. No evidence of deep vein thrombosis (DVT), pulmonary embolism (PE), or superficial phlebitis. Chest is clear to bilaterally bases. No wheezes or rhonchi. No costovertebral angle (CVA) tenderness. Abdomen is soft, as mentioned. She has no arthralgia, myalgia. No complaints of joint pain. No nausea, vomiting, diarrhea, or constipation. No urgency or frequency. In summary, we have a term gestation who delivered a live- female infant, uncomplicated. A 20-minute discussion. All questions were answered.
== END 2019-12-22 14:20 | disposition home or self-care (01) | DRG 773 ==
LOC: M LDO 04:52 → M LDI 05:46 → M OBS 12:11
PROVIDERS: ADMIT Obstetrics & Gynecology; ATTEND Obstetrics & Gynecology
PROC: 10D00Z1 Extraction of Products of Conception, Low, Open Approach (ICD-10-PCS; principal; 2019-12-21)
DX: O42.013 Preterm premature rupture of membranes, onset of labor within 24 hours of rupture, third trimester (principal); Z3A.39 39 weeks gestation of pregnancy; O62.3 Precipitate labor; Z37.0 Single live birth